=== PATIENT | male | born 1990 | race Caucasian/White ===

== ENCOUNTER 2023-03-04 13:39 | Emergency (ER) | payer BC, OTHER | END 2023-03-04 14:25 | disposition home or self-care (01) | LOC: JD.ED 13:39 | DX: S05.11XA Contusion of eyeball and orbital tissues, right eye, initial encounter (principal); H11.31 Conjunctival hemorrhage, right eye; W18.30XA Fall on same level, unspecified, initial encounter | CPT/HCPCS: 99282; 99283 ==